=== PATIENT | male | born 1960 | race Two or more races ===

== ENCOUNTER 2019-10-02 07:58 | Inpatient (IN) | payer OTHER ==
[~2019-10-02] VITALS: Ht 172.7 cm; Wt 68.0 kg
--- NOTE | 2019-10-02 08:00 | NUR ---
Patient arrived to ED by ambulance from [facility]. Patient O2 sat dropped to 87% at [facility] this AM per EMS. Patient arrived on non-rebreather mask at 13 L, satting 95% per EMS. Currently on NC at 4 L with O2 sat of 98%. +3 pitting edema on BLE, non productive, wet cough. Patient AxO x 2. Pressure ulcer on sacrum noted. Patient on the playground monitor. Bed in lowest position. Addendum: 10/02/19 at 1048 by DIAZ ED Nurse Note: Per EMS, patient hypotensive at baseline. SBP runs in the 80's to 90's at baseline.
[2019-10-02] MEDS ORDERED: NS 250 ML IV ONE (08:08)
[2019-10-02 08:09] VITALS: BP 82/53
--- NOTE | 2019-10-02 08:11 | Emergency Room Report ---
History of Present Illness General Chief Complaint: Dyspnea/Respdistress Source: Patient, Medical Record, EMS Present Illness HPI 63-year-old male With medical history of B-cell lymphoma, mucosa-associated lymphoma, diabetes, depression, bipolar disorder, GERD, UTI currently on Cipro, sent for shortness of breath and low O2 sat of 85% on room air. Further history is difficult to ascertain due to patient's medical condition, Answering yes or no questions, nodding appropriately, but not able to speak much secondary to respiratory distress and generalized weakness. However, patient denied any pain complaints, and reports the increasing breathing difficulty just started very recently, unclear if yesterday or just today. Allergies: Coded Allergies: No Known Allergies (Unverified , 10/02/19) Patient History Limited by: medical condition Past Medical History: see triage record Reviewed Nursing Documentation: PMH: Agreed; PSxH: Agreed Nursing Documentation-PMH Past Medical History: No History, Except For Hx Diabetes: Yes - Type 2 Review of Systems All Other Systems: limited - 2/2 medical condition Physical Exam Vital Signs Date Time Temp Pulse Resp B/P (MAP) Pulse Ox O2 Delivery O2 Flow Rate FiO2 10/02/19 07:50 97.0 103 18 81/52 (62) 95 Non-Rebreather 15.0 Sp02 EP Interpretation: reviewed, abnormal General Appearance: alert, mild distress Head: normocephalic Eyes: bilateral eye normal inspection, bilateral eye PERRL, bilateral eye EOMI ENT: normal ENT inspection, normal pharynx, no angioedema, moist mucus membranes Neck: normal inspection, full range of motion, supple, supple/symm/no masses Respiratory: chest non-tender, decreased breath sounds - at R base, rhonchi, chest symmetrical, palpation of chest normal Cardiovascular #1: normal peripheral pulses, regular rate, rhythm, edema - 2+ B /L LE edema Cardiovascular #2: 1+ radial (R), 1+ radial (L) Gastrointestinal: normal inspection, non tender, soft, no mass, no guarding, no rebound Rectal: deferred Genitourinary: normal inspection, no CVA tenderness Musculoskeletal: back normal, normal range of motion, non-tender, no calf tenderness Neurologic: alert, responsive, electric serviceman III-XII nml as tested, motor strength/tone normal, sensory intact Psychiatric: mood/affect normal Skin: no rash Lymphatic: no adenopathy Procedures Critical Care Time Critical Care Time 40 mins of critical care time excluding all procedures due to severe respiratory distress, hypoxia Medical Decision Making Diagnostic Impression: Primary Impression: Respiratory distress Additional Impression: Hypoxia ER Course Patient has a documented POLST form that shows he is DNR. He is found to have a likely pneumonia, was given supplemental oxygen for his significant hypoxia, as well as nebulizer therapy, and patient reports some relief with this. Patient with POLST form requesting avoidance of aggressive care, therefore with hypotension and peripheral edema, will only give small aliquots of fluid and re- assess frequently. No shalini pulmonary edema on CXR, so will avoid lasix 2/2 low bp. Lactic acid 2.1, do not have high suspicion for sepsis.and admitted to telemetry suspected pneumonia, given antibiotics as well. Patient with POLST form requesting avoidance of aggressive care, therefore with hypotension and peripheral edema, will only give small aliquots of fluid and re-assess frequently. No shalini pulmonary edema on CXR, so will avoid lasix 2/2 low bp. Lactic acid 2.1, do not have high suspicion for sepsis. EKG Diagnostic Results EKG Time: 08:19 EP Interpretation: no stemi Rate: normal Rhythm: NSR ST Segments: no acute changes ASA given to the pt in ED: No Rhythm Strip Diag. Results Rhythm Strip Time: 08:50 EP Interpretation: yes Rate: 100 Rhythm: NSR, no PVC's, no ectopy Chest X-Ray Diagnostic Results Chest X-Ray Diagnostic Results : Chest X-Ray Ordered: Yes # of Views/Limited/Complete: 1 View Indication: Shortness of Breath EP Interpretation: Yes Interpretation: no consolidation - patchy R basilar opacity, no effusion, no pneumothorax, other - R mindy diaphragm elevation Impression: Other - patchy R basilar pna and R hemidiaphragm elevation Electronically Signed by: Rebeka Cristobal MD Last Vital Signs Date Time Temp Pulse Resp B/P (MAP) Pulse Ox O2 Delivery O2 Flow Rate FiO2 10/02/19 07:50 97.0 103 18 81/52 (62) 95 Non-Rebreather 15.0 REBEKA CRISTOBAL M.D Oct 02, 2019 08:11
[2019-10-02] MEDS ORDERED: ZOFRAN4 M3 ORAL (08:14)
[2019-10-02] MEDS ORDERED: ATIVAN1 MG ORAL (08:14)
[2019-10-02] MEDS ORDERED: FLOMAX0.4 MG ORAL (08:14)
[2019-10-02] MEDS ORDERED: CIPRO250 MG ORAL (08:14)
[2019-10-02] MEDS ORDERED: MELATONIN5 M2 SL (08:14)
[2019-10-02] MEDS ORDERED: NORCO 10-325 T1 EACH ORAL (08:14)
[2019-10-02] MEDS ORDERED: MIRALAX17 G2 ORAL (08:14)
[2019-10-02] MEDS ORDERED: MILK OF MA400 MG/51 ORAL (08:14)
[2019-10-02] MEDS ORDERED: TRAZODONE HCL50 MG ORAL (08:14)
[2019-10-02] MEDS ORDERED: BISACODYL5 MG ORAL (08:14)
[2019-10-02] MEDS ORDERED: DOCUSATE SODIU100 MG ORAL (08:14)
[2019-10-02] MEDS ORDERED: OMEPRAZOLE20 M2 ORAL (08:14)
[2019-10-02] MEDS ORDERED: LEVSIN-SL0.125 MG SL (08:14)
[2019-10-02] MEDS ORDERED: MORPHINE S20 MG/5 ML PO (08:14)
--- NOTE | 2019-10-02 08:15 | NUR ---
RT at bedside giving breathing treatment.
[2019-10-02] MEDS: Albuterol ud Inhalation HHN SCH ×2 (08:20→09:09)
[2019-10-02] MEDS: Ipratropium 0.02% Inh Soln 2.5ml UD HHN SCH ×2 (08:20→09:09)
--- NOTE | 2019-10-02 08:20 | NUR ---
ED Nurse Note: x-ray at bedside.
[2019-10-02 08:34] LABS: HEMATOCRIT 30.2 % (42.0-52.0); HEMOGLOBIN 8.9 G/DL (14.2-18.0); MEAN CORPUSCULAR VOLUME 94 FL (80-99); PLATELET COUNT 331 K/UL (150-450); RED BLOOD COUNT 3.21 M/UL (4.70-6.10); RED CELL DISTRIBUTION WIDTH 19.9 % (11.6-14.8); WHITE BLOOD COUNT 13.6 K/UL (4.8-10.8)
[2019-10-02 08:42] LABS: INR 1.2 (0.9-1.1)
--- NOTE | 2019-10-02 08:48 | NUR ---
ED Nurse Note: blood and urine sent to lab.
--- NOTE | 2019-10-02 08:50 | NUR ---
ED Nurse Note: ERMD at bedside.
--- NOTE | 2019-10-02 08:52 | NUR ---
ED Nurse Note: RT staying at bedside for breathing treatment and ABG
[2019-10-02 09:03] LABS: ALANINE AMINOTRANSFERASE 102 U/L (12-78); ALBUMIN 1.5 G/DL (3.4-5.0); ALBUMIN/GLOBULIN RATIO 0.3 (1.0-2.7); ALKALINE PHOSPHATASE 416 U/L (46-116); ANION GAP 15 mmol/L (5-15); ASPARTATE AMINO TRANSFERASE 370 U/L (15-37); BILIRUBIN,TOTAL 3.6 MG/DL (0.2-1.0); BLOOD UREA NITROGEN 85 mg/dL (7-18); CALCIUM 8.5 MG/DL (8.5-10.1); CARBON DIOXIDE 19 MMOL/L (21-32); CHLORIDE 104 MMOL/L (98-107); CREATININE 2.2 MG/DL (0.55-1.30); SODIUM 138 MMOL/L (136-145)
[2019-10-02 09:09] LABS: POTASSIUM 6.4 MMOL/L (3.5-5.1)
[2019-10-02 09:10] LABS: APPEARANCE,URINE SLIGHTLY CLOUDY; BILIRUBIN, URINE 1+ (NEGATIVE); COLOR,URINE BROWN; GLUCOSE, URINE (UA) NEGATIVE (NEGATIVE); KETONES,URINE 1+ (NEGATIVE); LEUKOCYTE ESTERASE ,URINE 1+ (NEGATIVE); NITRITE,URINE NEGATIVE (NEGATIVE); PH,URINE 5 (4.5-8.0); PROTEIN,URINE 2+ (NEGATIVE); UROBILINOGEN,URINE 8 MG/DL (0.0-1.0)
[2019-10-02 09:11] LABS: BILIRUBIN,DIRECT 3.1 MG/DL (0.0-0.3)
[2019-10-02] MEDS ORDERED: Aspirin Baby 81mg PO SCH (09:15)
[2019-10-02] MEDS ORDERED: Omnipaue 350mg/ml 100ml vial INJ PRN (09:15)
--- NOTE | 2019-10-02 09:18 | NUR ---
ED Nurse Note: pt having difficulty to clear the secretion. RT suctioning pt.
--- NOTE | 2019-10-02 09:27 | Diagnostic Imaging Report ---
Indication: Shortness of breath Technique: One view of the chest Comparison: none Findings: There is marked elevation the right hemidiaphragm. There is atelectasis at the right lung base. The heart size is normal. Impression: Elevated right hemidiaphragm with right basilar atelectasis No acute process otherwise
[2019-10-02] MEDS ORDERED: Calcium Gluconate 1gm/10ml vial IVP ONE (09:30)
[2019-10-02] MEDS ORDERED: Sodium Bicarbonate 50ml Carp IV ONE (09:30)
[2019-10-02] MEDS ORDERED: Sodium Polystyrene Sulfonate 15gm Powder ORAL ONE (09:30)
[2019-10-02] MEDS ORDERED: Insulin Human Regular 100units/ml 3ml IV ONE (09:30)
[2019-10-02 10:02] VITALS: BP 93/63
--- NOTE | 2019-10-02 10:12 | NUR ---
ED Nurse Note: pt more awake and talks more to make needs than arrival.
--- NOTE | 2019-10-02 10:20 | NUR ---
ED Nurse Note: US initiated at bedside.
--- NOTE | 2019-10-02 10:42 | NUR ---
ED Nurse Note: US done at bedside.
--- NOTE | 2019-10-02 11:40 | NUR ---
ED Nurse Note: Per ER MD, patient needs VQ scan prior to being transfered. Tie In Hand took patient to VQ scan in stable condition.
--- NOTE | 2019-10-02 11:54 | NUR ---
ED Nurse Note: Handoff report given to Josefa BIRMINGHAM. Patient currently in VQ scan, will be transfered to [facility] in approximately 1 hour. Josefa BIRMINGHAM aware.
--- NOTE | 2019-10-02 12:00 | NUR ---
NURSE NOTES: I received the patient from the ER. Patient alert and oriented x4. Patient on a NC at 5L. Patient oriented to the room and the use of the call light. Bed in the lowest position and call light within reach. I will continue to monitor the patient and contact admitting doctor.
--- NOTE | 2019-10-02 12:05 | NUR ---
ED Nurse Note: pt came back to unit without VQ scan due to being unable to lay flat during the scanning. pt will be transferred.
--- NOTE | 2019-10-02 12:08 | NUR ---
Attempted STAT VQ SCAN. Pt unable to tolerate laying flat. Unable to do scan
--- NOTE | 2019-10-02 12:10 | NUR ---
ED Nurse Note: Patient transfered to Telemetry unit in stable condition by 2 RN's. Josefa BIRMINGHAM took over patient care.
--- NOTE | 2019-10-02 13:29 | Diagnostic Imaging Report ---
Indication: Shortness of breath, bilateral lower extremity edema Technique: Grayscale and duplex images of the bilateral lower extremity veins Comparison: none Findings: Bilaterally, grayscale and duplex images demonstrate no evidence of intraluminal thrombus. Normal phasic Doppler waveforms demonstrating normal augmentation response. No evidence of valvular insufficiency. Normal compressibility. There is edema of the subcutaneous fat and deep soft tissues noted bilaterally Impression: Negative for evidence of lower extremity deep venous thrombosis bilaterally.
--- NOTE | 2019-10-02 13:42 | Infectious Diseases Prog Note ---
Assessment/Plan Problems: (1) RLL pneumonia Assessment & Plan: with productive cough, fever and infiltrates on CXR, start vancomycin and zosyn empirically, send sputum culture , aspiration precaution (2) Leukocytosis Assessment & Plan: rule out sepsis, start vancomycin and zosyn empirically pending blood culture , continue hydration for blood pressure support (3) Respiratory distress Assessment & Plan: rule out PE too , recommend CTA of the chest , or VQ scan, will order venous Doppler of the legs (4) Hypoxia Assessment & Plan: suspect due to the above, continue antibiotics, oxygen and nebulizers as needed (5) B-cell lymphoma Assessment & Plan: unclear whether he was treated , oncology is following (6) Diabetes mellitus Assessment & Plan: recommend tight glycemic control to keep blood glucose between 100-140 (7) UTI (urinary tract infection) Assessment & Plan: already on zosyn pending culture Subjective Allergies: Coded Allergies: No Known Allergies (Unverified , 10/02/19) Objective Vital Signs Last 24 Hour Vital Signs Date Time Temp Pulse Resp B/P (MAP) Pulse Ox O2 Delivery O2 Flow Rate FiO2 10/02/19 13:02 97.8 102 20 93/63 94 Nasal Cannula 4.0 120 120 10/02/19 10:02 97.8 120 20 93/63 94 Nasal Cannula 4.0 10/02/19 08:20 98 26 96 10/02/19 08:20 102 18 96 4.0 36 98 26 96 10/02/19 08:09 97.0 102 18 82/53 96 Nasal Cannula 4.0 10/02/19 08:09 103 18 Nasal Cannula 4.0 10/02/19 07:50 97.0 103 18 81/52 (62) 95 Non-Rebreather 15.0 Height (Feet): 5 Height (Inches): 8.00 Weight (Pounds): 150 Microbiology Date/Time Source Procedure Growth Status 10/02/19 08:10 Nasal Not Otherwise Specified - Final Complete 10/02/19 08:10 Nasal Not Otherwise Specified - Final Complete Laboratory Tests Test 10/02/19 08:02 10/02/19 08:10 10/02/19 10:04 Arterial Blood pH 7.311 (7.350-7.450) Arterial Blood Partial Pressure CO2 29.3 mmHg (35.0-45.0) L Arterial Blood Partial Pressure O2 83.1 mmHg (75.0-100.0) Arterial Blood HCO3 14.5 mmol/L (22.0-26.0) *L Arterial Blood Oxygen Saturation 94.3 % (95-100) L Arterial Blood Base Excess -10.7 (-2-2) *L Maynor Test Positive White Blood Count 13.6 K/UL (4.8-10.8) H Red Blood Count 3.21 M/UL (4.70-6.10) L Hemoglobin 8.9 G/DL (14.2-18.0) L Hematocrit 30.2 % (42.0-52.0) L Mean Corpuscular Volume 94 FL (80-99) Mean Corpuscular Hemoglobin 27.6 PG (27.0-31.0) Mean Corpuscular Hemoglobin Concent 29.4 G/DL (32.0-36.0) L Red Cell Distribution Width 19.9 % (11.6-14.8) H Platelet Count 331 K/UL (150-450) Mean Platelet Volume 6.4 FL (6.5-10.1) L Neutrophils (%) (Auto) % (45.0-75.0) Lymphocytes (%) (Auto) % (20.0-45.0) Monocytes (%) (Auto) % (1.0-10.0) Eosinophils (%) (Auto) % (0.0-3.0) Basophils (%) (Auto) % (0.0-2.0) Differential Total Cells Counted 100 Neutrophils % (Manual) 90 % (45-75) H Lymphocytes % (Manual) 5 % (20-45) L Monocytes % (Manual) 5 % (1-10) Eosinophils % (Manual) 0 % (0-3) Basophils % (Manual) 0 % (0-2) Band Neutrophils 0 % (0-8) Nucleated Red Blood Cells 1 /100 WBC Platelet Estimate Adequate Platelet Morphology Normal Prothrombin Time 12.7 SEC (9.30-11.50) H Prothromb Time International Ratio 1.2 (0.9-1.1) H Activated Partial Thromboplast Time 31 SEC (23-33) Urine Color Brown Urine Appearance Slightly cloudy Urine pH 5 (4.5-8.0) Urine Specific [place] 1.020 (1.005-1.035) Urine Protein 2+ (NEGATIVE) H Urine Glucose (UA) Negative (NEGATIVE) Urine Ketones 1+ (NEGATIVE) H Urine Blood 1+ (NEGATIVE) H Urine Nitrite Negative (NEGATIVE) Urine Bilirubin 1+ (NEGATIVE) H Urine Ictotest Negative (NEGATIVE) Urine Urobilinogen 8 MG/DL (0.0-1.0) H Urine Leukocyte Esterase 1+ (NEGATIVE) H Urine RBC 2-4 /HPF (0 - 0) H Urine WBC 2-4 /HPF (0 - 0) Urine Squamous Epithelial Cells Occasional /LPF Urine Amorphous Sediment Moderate /LPF (NONE) H Urine Bacteria Few /HPF (NONE) Sodium Level 138 MMOL/L (136-145) Potassium Level 6.4 MMOL/L (3.5-5.1) *H Chloride Level 104 MMOL/L (98-107) Carbon Dioxide Level 19 MMOL/L (21-32) L Anion Gap 15 mmol/L (5-15) Blood Urea Nitrogen 85 mg/dL (7-18) H Creatinine 2.2 MG/DL (0.55-1.30) H Estimat Glomerular Filtration Rate 30.3 mL/min (>60) Glucose Level 139 MG/DL (74-106) H Lactic Acid Level 2.10 mmol/L (0.4-2.0) H 3.10 mmol/L (0.66-2.22) H Calcium Level 8.5 MG/DL (8.5-10.1) Iron Level Pending Unsaturated Iron Binding Pending Ferritin Pending Total Bilirubin 3.6 MG/DL (0.2-1.0) H Direct Bilirubin 3.1 MG/DL (0.0-0.3) H Aspartate Amino Transf (AST/SGOT) 370 U/L (15-37) H Alanine Aminotransferase (ALT/SGPT) 102 U/L (12-78) H Alkaline Phosphatase 416 U/L (46-116) H Troponin I 0.041 ng/mL (0.000-0.056) Pro-B-Type Natriuretic Peptide 1778 pg/mL (0-125) H Total Protein 6.4 G/DL (6.4-8.2) Albumin 1.5 G/DL (3.4-5.0) L Globulin 4.9 g/dL Albumin/Globulin Ratio 0.3 (1.0-2.7) L Vitamin B12 Level Pending Folate Pending Current Medications Medications (Trade) Dose Ordered Sig/Melisa Route PRN Reason Start Time Stop Time Status Last Admin Dose Admin Iohexol (Omnipaque) 100 mg NOW PRN INJ Radiology Procedure 10/02/19 09:15 10/04/19 09:06 Levofloxacin 150 ml @ 150 mls/hr Q24H IV 10/02/19 08:15 10/03/19 08:14 10/02/19 08:55 Mario Yates M.D. Oct 02, 2019 13:42
[2019-10-02] MEDS ORDERED: HYDROcodone/Acetamin 5/325 tab ORAL PRN (13:45)
[2019-10-02] MEDS ORDERED: Tylenol #3 tab (300mg/30mg) ORAL PRN (13:45)
[2019-10-02] MEDS: Albuterol/Ipratropium 3ml neb HHN SCH ×3 (14:37→23:26)
[2019-10-02] MEDS: D5NS 1,000 ML IV SCH (15:40)
[2019-10-02] MEDS: Piperacillin/Tazobactam 3.375 GM in NS 110 ML IVPB SCH ×2 (15:41→21:54)
--- NOTE | 2019-10-02 16:15 | NUR ---
NURSE NOTES: Patient blood pressure was decreased, 69/48 and his oxygen saturation was at 70% on 5L of NC. A 250 ml of NS bolus and albumin order was obtained from Dr. Haji and VINNIE Woods assisted in entering orders and administering medications. A rapid response was called. Patient was put on a venturi mask and saturation increased to 100%. NS bolus and albumin was started. Patient resting in bed. Patient responds to name.
--- NOTE | 2019-10-02 16:30 | NUR ---
HAND-OFF: Report given to VINNIE Wagner.
--- NOTE | 2019-10-02 16:53 | Cardiac Electrophysiology PN ---
Subjective Subjective [id number] Objective Last 24 Hour Vital Signs Date Time Temp Pulse Resp B/P (MAP) Pulse Ox O2 Delivery O2 Flow Rate FiO2 10/02/19 13:02 97.8 102 20 93/63 94 Nasal Cannula 4.0 120 120 10/02/19 12:54 Non-Rebreather 10/02/19 10:02 97.8 120 20 93/63 94 Nasal Cannula 4.0 10/02/19 08:20 98 26 96 10/02/19 08:20 102 18 96 4.0 36 98 26 96 10/02/19 08:09 97.0 102 18 82/53 96 Nasal Cannula 4.0 10/02/19 08:09 103 18 Nasal Cannula 4.0 10/02/19 07:50 97.0 103 18 81/52 (62) 95 Non-Rebreather 15.0 Laboratory Tests Test 10/02/19 08:02 10/02/19 08:10 10/02/19 10:04 Arterial Blood pH 7.311 (7.350-7.450) Arterial Blood Partial Pressure CO2 29.3 mmHg (35.0-45.0) L Arterial Blood Partial Pressure O2 83.1 mmHg (75.0-100.0) Arterial Blood HCO3 14.5 mmol/L (22.0-26.0) *L Arterial Blood Oxygen Saturation 94.3 % (95-100) L Arterial Blood Base Excess -10.7 (-2-2) *L Maynor Test Positive White Blood Count 13.6 K/UL (4.8-10.8) H Red Blood Count 3.21 M/UL (4.70-6.10) L Hemoglobin 8.9 G/DL (14.2-18.0) L Hematocrit 30.2 % (42.0-52.0) L Mean Corpuscular Volume 94 FL (80-99) Mean Corpuscular Hemoglobin 27.6 PG (27.0-31.0) Mean Corpuscular Hemoglobin Concent 29.4 G/DL (32.0-36.0) L Red Cell Distribution Width 19.9 % (11.6-14.8) H Platelet Count 331 K/UL (150-450) Mean Platelet Volume 6.4 FL (6.5-10.1) L Neutrophils (%) (Auto) % (45.0-75.0) Lymphocytes (%) (Auto) % (20.0-45.0) Monocytes (%) (Auto) % (1.0-10.0) Eosinophils (%) (Auto) % (0.0-3.0) Basophils (%) (Auto) % (0.0-2.0) Differential Total Cells Counted 100 Neutrophils % (Manual) 90 % (45-75) H Lymphocytes % (Manual) 5 % (20-45) L Monocytes % (Manual) 5 % (1-10) Eosinophils % (Manual) 0 % (0-3) Basophils % (Manual) 0 % (0-2) Band Neutrophils 0 % (0-8) Nucleated Red Blood Cells 1 /100 WBC Platelet Estimate Adequate Platelet Morphology Normal Prothrombin Time 12.7 SEC (9.30-11.50) H Prothromb Time International Ratio 1.2 (0.9-1.1) H Activated Partial Thromboplast Time 31 SEC (23-33) Urine Color Brown Urine Appearance Slightly cloudy Urine pH 5 (4.5-8.0) Urine Specific [place] 1.020 (1.005-1.035) Urine Protein 2+ (NEGATIVE) H Urine Glucose (UA) Negative (NEGATIVE) Urine Ketones 1+ (NEGATIVE) H Urine Blood 1+ (NEGATIVE) H Urine Nitrite Negative (NEGATIVE) Urine Bilirubin 1+ (NEGATIVE) H Urine Ictotest Negative (NEGATIVE) Urine Urobilinogen 8 MG/DL (0.0-1.0) H Urine Leukocyte Esterase 1+ (NEGATIVE) H Urine RBC 2-4 /HPF (0 - 0) H Urine WBC 2-4 /HPF (0 - 0) Urine Squamous Epithelial Cells Occasional /LPF Urine Amorphous Sediment Moderate /LPF (NONE) H Urine Bacteria Few /HPF (NONE) Sodium Level 138 MMOL/L (136-145) Potassium Level 6.4 MMOL/L (3.5-5.1) *H Chloride Level 104 MMOL/L (98-107) Carbon Dioxide Level 19 MMOL/L (21-32) L Anion Gap 15 mmol/L (5-15) Blood Urea Nitrogen 85 mg/dL (7-18) H Creatinine 2.2 MG/DL (0.55-1.30) H Estimat Glomerular Filtration Rate 30.3 mL/min (>60) Glucose Level 139 MG/DL (74-106) H Lactic Acid Level 2.10 mmol/L (0.4-2.0) H 3.10 mmol/L (0.66-2.22) H Calcium Level 8.5 MG/DL (8.5-10.1) Iron Level Pending Unsaturated Iron Binding Pending Ferritin > 2000 NG/ML (8-388) H Total Bilirubin 3.6 MG/DL (0.2-1.0) H Direct Bilirubin 3.1 MG/DL (0.0-0.3) H Aspartate Amino Transf (AST/SGOT) 370 U/L (15-37) H Alanine Aminotransferase (ALT/SGPT) 102 U/L (12-78) H Alkaline Phosphatase 416 U/L (46-116) H Troponin I 0.041 ng/mL (0.000-0.056) Pro-B-Type Natriuretic Peptide 1778 pg/mL (0-125) H Total Protein 6.4 G/DL (6.4-8.2) Albumin 1.5 G/DL (3.4-5.0) L Globulin 4.9 g/dL Albumin/Globulin Ratio 0.3 (1.0-2.7) L Microbiology Date/Time Source Procedure Growth Status 10/02/19 08:10 Nasal Not Otherwise Specified - Final Complete 10/02/19 08:10 Nasal Not Otherwise Specified - Final Complete Tom Holliday MD Oct 02, 2019 16:53
[2019-10-02] MEDS ORDERED: Vancomycin 1gm in D5W 275ml IVPB ONE (18:00)
--- NOTE | 2019-10-02 18:05 | NUR ---
NURSE NOTES: pt refused esquivel and labs. Insisted a few time but pt still refused was present at beside
--- NOTE | 2019-10-02 19:05 | NUR ---
NURSE NOTES: Dr Peters is aware of pt refusing labs and esquivel.
--- NOTE | 2019-10-02 19:30 | NUR ---
HAND-OFF: Report given to Laci. Addendum: 10/02/19 at 2012 by Kristy Finley RN HAND OFF : Due to unforeseen situation, pt report was given to Kathy, she will be taking care of pt.
[2019-10-02 20:00] VITALS: BP 90/55
--- NOTE | 2019-10-02 20:17 | NUR ---
NURSE NOTES: RECEIVED PATIENT AWAKE, RESTING IN BED. AT BEDSIDE. FALL AND ASPIRATION PRECAUTIONS IN PLACE: CALL LIGHT AND BEDSIDE TABLE WITHIN REACH, BED IN LOW POSITION AND BED ALARM ON. PLAN OF CARE REVIEWED.
--- NOTE | 2019-10-02 20:25 | Pulmonology Progress Note ---
Assessment/Plan Assessment/Plan Pulmonary Consulttaion HPI Patient is a 63 year old man with previous medical history of B-cell lymphoma, Mucosa-associated lymphoma, Diabetes, Depression, Bipolar disorder, GERD, UTI, admitted with worsening shortness of breath and low O2 sat of 85% on room air, hypotension, generalized weakness. Patient denied any pain. Patient DNAR per POLST Allergies: No Known Allergies Past Medical History: B-cell lymphoma, Mucosa-associated lymphoma, Diabetes, Depression, Bipolar disorder, GERD, UTI All Other Systems: limited due to medical condition Physical Exam Vital Signs Noted Date Time Temp Pulse Resp B/P (MAP) Pulse Ox O2 Delivery O2 Flow Rate FiO2 10/02/19 07:50 97.0 103 18 81/52 (62) 95 Non-Rebreather 15.0 General Appearance: Chroncially ill appearing, mild distress, cachectic Head: normocephalic Eyes: bilateral eye normal inspection, bilateral eye PERRL, bilateral eye EOMI ENT: normal ENT inspection, normal pharynx, no angioedema, moist mucus membranes Neck: normal inspection, full range of motion, supple, supple/symm/no masses Respiratory: chest non-tender, decreased breath sounds - at R base, occasional rhonchi Cardiovascular: normal peripheral pulses, regular rate, rhythm, normal HS1 and HS2, edema - mild edema Gastrointestinal: normal inspection, non tender, soft, no mass, no guarding, no rebound Musculoskeletal: Generally wasted, weak Neurologic: alert, responsive, community engagement specialist III-XII nml as tested, weak, moves all limbs Psychiatric: mood/affect normal Impression: Respiratory distress, hypoxia Pneumonia Possible Sepsis Hypotension Hyperkalemia B-cell lymphoma Mucosa-associated lymphoma Diabetes Depression Bipolar disorder GERD UTI DNAR Plan O2 PRN HHN BiPAP PRN DNAR status Continue current antibiotics Cautious IV fluids Cortisol level Stress Dose steroids Monitor labs PPX EKG: NSR ST Segments: no acute changes Chest X-Ray: Patchy R basilar opacity, no effusion, no pneumothorax, right mindy diaphragm elevation Subjective ROS Limited/Unobtainable: No Allergies: Coded Allergies: No Known Allergies (Unverified , 10/02/19) Objective Last 24 Hour Vital Signs Date Time Temp Pulse Resp B/P (MAP) Pulse Ox O2 Delivery O2 Flow Rate FiO2 10/02/19 19:51 102 18 94 Non-Rebreather 15.0 100 108 28 100 10/02/19 16:00 109 10/02/19 16:00 15.0 10/02/19 13:02 97.8 102 20 93/63 94 Nasal Cannula 4.0 120 120 10/02/19 12:54 Non-Rebreather 10/02/19 10:02 97.8 120 20 93/63 94 Nasal Cannula 4.0 10/02/19 08:20 98 26 96 10/02/19 08:20 102 18 96 4.0 36 98 26 96 10/02/19 08:09 97.0 102 18 82/53 96 Nasal Cannula 4.0 10/02/19 08:09 103 18 Nasal Cannula 4.0 10/02/19 07:50 97.0 103 18 81/52 (62) 95 Non-Rebreather 15.0 Microbiology Date/Time Source Procedure Growth Status 10/02/19 08:10 Nasal Not Otherwise Specified - Final Complete 10/02/19 08:10 Nasal Not Otherwise Specified - Final Complete Laboratory Tests 10/02/19 08:02: Arterial Blood pH 7.311L, Arterial Blood Partial Pressure CO2 29.3L, Arterial Blood Partial Pressure O2 83.1, Arterial Blood HCO3 14.5*L, Arterial Blood Oxygen Saturation 94.3L, Arterial Blood Base Excess -10.7*L, Maynor Test Positive 10/02/19 08:10: White Blood Count 13.6H, Red Blood Count 3.21L, Hemoglobin 8.9L, Hematocrit 30.2L, Mean Corpuscular Volume 94, Mean Corpuscular Hemoglobin 27.6, Mean Corpuscular Hemoglobin Concent 29.4L, Red Cell Distribution Width 19.9H, Platelet Count 331, Mean Platelet Volume 6.4L, Neutrophils (%) (Auto) , Lymphocytes (%) (Auto) , Monocytes (%) (Auto) , Eosinophils (%) (Auto) , Basophils (%) (Auto) , Differential Total Cells Counted 100, Neutrophils % ( Manual) 90H, Lymphocytes % (Manual) 5L, Monocytes % (Manual) 5, Eosinophils % ( Manual) 0, Basophils % (Manual) 0, Band Neutrophils 0, Nucleated Red Blood Cells 1, Platelet Estimate Adequate, Platelet Morphology Normal, Prothrombin Time 12.7H, Prothromb Time International Ratio 1.2H, Activated Partial Thromboplast Time 31, Urine Color Brown, Urine Appearance Slightly cloudy, Urine pH 5, Urine Specific [place] 1.020, Urine Protein 2+H, Urine Glucose (UA) Negative, Urine Ketones 1+H, Urine Blood 1+H, Urine Nitrite Negative, Urine Bilirubin 1+H, Urine Ictotest Negative, Urine Urobilinogen 8H, Urine Leukocyte Esterase 1+H, Urine RBC 2-4H, Urine WBC 2-4, Urine Squamous Epithelial Cells Occasional, Urine Amorphous Sediment ModerateH, Urine Bacteria Few, Sodium Level 138, Potassium Level 6.4*H, Chloride Level 104, Carbon Dioxide Level 19L, Anion Gap 15, Blood Urea Nitrogen 85H, Creatinine 2.2H, Estimat Glomerular Filtration Rate 30.3, Glucose Level 139H, Lactic Acid Level 2.10H, Calcium Level 8.5, Iron Level [Pending], Unsaturated Iron Binding [Pending], Ferritin > 2000H, Total Bilirubin 3.6H, Direct Bilirubin 3.1H, Aspartate Amino Transf (AST/ SGOT) 370H, Alanine Aminotransferase (ALT/SGPT) 102H, Alkaline Phosphatase 416H , Troponin I 0.041, Pro-B-Type Natriuretic Peptide 1778H, Total Protein 6.4, Albumin 1.5L, Globulin 4.9, Albumin/Globulin Ratio 0.3L 10/02/19 10:04: Lactic Acid Level 3.10H Current Medications Medications (Trade) Dose Ordered Sig/Melisa Route PRN Reason Start Time Stop Time Status Last Admin Dose Admin Acetaminophen/ Codeine Phosphate (Tylenol #3) 1 tab Q6H PRN ORAL For Pain 10/02/19 13:45 10/09/19 13:44 Acetaminophen/ Hydrocodone Bitart ([place] 5/325) 1 tab Q6H PRN ORAL For Pain 10/02/19 13:45 10/09/19 13:44 Albuterol/ Ipratropium (Albuterol/ Ipratropium) 3 ml Q4HRT HHN 10/02/19 15:00 10/07/19 14:59 10/02/19 19:51 Dextrose/Sodium Chloride 1,000 ml @ 100 mls/hr Q10H IV 10/02/19 13:45 11/01/19 13:44 10/02/19 15:40 Hydrocortisone (Solu-CORTEF) 50 mg EVERY 8 HOURS IV 10/02/19 22:00 11/01/19 21:59 Iohexol (Omnipaque) 100 mg NOW PRN INJ Radiology Procedure 10/02/19 09:15 10/04/19 09:06 Lansoprazole (Prevacid) 15 mg DAILY ORAL 10/03/19 09:00 11/02/19 08:59 Morphine Sulfate (Morphine Sulfate) 2 mg Q6H PRN IVP Severe Pain (Pain Scale 7-10) 10/02/19 13:45 10/09/19 13:44 Ondansetron HCl (Zofran) 4 mg Q6H PRN IVP Nausea & Vomiting 10/02/19 13:45 11/01/19 13:44 Ondansetron HCl (Zofran) 4 mg Q6H PRN ORAL Nausea & Vomiting 10/02/19 13:45 11/01/19 13:44 Piperacillin Sod/ Tazobactam Sod 3.375 gm/Sodium Chloride 110 ml @ 27.5 mls/hr EVERY 8 HOURS IVPB 10/02/19 14:00 10/07/19 13:59 10/02/19 15:41 Tamsulosin HCl (Flomax) 0.4 mg DAILY ORAL 10/03/19 09:00 11/02/19 08:59 Vancomycin HCl (Vanco rx to dose) 1 ea DAILY PRN MISC Per rx protocol 10/02/19 13:45 11/01/19 13:44 David Haji MD Oct 02, 2019 20:25
[2019-10-02] MEDS: Hydrocortisone 100mg Inj IV SCH (21:53)
--- NOTE | 2019-10-02 22:02 | Consultation ---
DATE OF CONSULTATION: 10/02/2019 INFECTIOUS DISEASE CONSULTATION CONSULTING PHYSICIAN: Mario Yates M.D. REQUESTING PHYSICIAN: Lorraine Canchola M.D. REASON FOR CONSULTATION: Pneumonia, sepsis, and leukocytosis in an immunocompromised patient. Recommendation for antibiotics treatment. HISTORY OF PRESENT ILLNESS: The patient is a 63-year-old male with past medical history of B-cell lymphoma, diabetes, depression, bipolar disorder, gastroesophageal reflux disease, and urinary tract infection, who has been on ciprofloxacin recently, was sent to [facility] emergency room for cough, productive, shortness of breath, and hypoxemia. The patient was found to be saturating 85% on room air. The patient has been feeling weak and tired over the last couple of days and unable to speak in full sentences. In the emergency room, his temperature was 97 with blood pressure of 81/52, which was concerning for sepsis. His white count also was found to be elevated. Chest x-ray showed right lower lobe infiltration concerning for pneumonia, so the patient was given Levaquin, antibiotics treatment, and admitted to the tele monitor unit for further evaluation and management. Infectious Disease consultation was requested for antibiotic guidance and further care. As of note, the patient is a poor historian and could not provide good history. History was mainly obtained from the medical record, nursing staff, and partially from the patient. REVIEW OF SYSTEMS: A 14-point of system reviewed were all negative apart from the one I mentioned above in my History and Physical. PAST MEDICAL HISTORY: Significant for B-cell lymphoma, diabetes, depression, bipolar disorder, gastroesophageal reflux disease, and urinary tract infection. PAST SURGICAL HISTORY: Not on record. MEDICATIONS: The patient received Levaquin in the emergency room and he was started on vancomycin and Zosyn by the admitting physician. For the rest of his medications, please refer to MAR. ALLERGIES: No known drug allergies. FAMILY HISTORY: Not contributory. SOCIAL HISTORY: The patient denies using any drugs, tobacco, or alcohol. He is retired. Unemployed at this point. PHYSICAL EXAMINATION: VITAL SIGNS: Temperature 97.8, pulse 102, respirations 20, blood pressure 93/63, and O2 saturation 94% on 4 L nasal cannula. GENERAL: A middle-aged male, cachectic, lying in bed, lethargic, ill-looking, able to answer question, not in acute distress. HEENT: Normocephalic and atraumatic. Pupils are reactive to light. Equal pale sclerae. Dry oral mucosa with brownish exudate on his tongue. No thrush or ulceration. NECK: Supple. No lymphadenopathy. CARDIOVASCULAR: He is tachycardic. S1, S2 normal. No gallop. No murmur. LUNGS: He had diminished breathing sound in the right lower lobe with crackles. No wheezing or rhonchi. ABDOMEN: Tender in the right upper quadrant with mild ascites. No rebound. EXTREMITY: A +3 edema in both lower extremity. No cyanosis. Unable to palpate distal pulse. SKIN: No rash. No hives. GENITOURINARY: Normal genitalia. LABORATORY AND DIAGNOSTIC DATA: Labs showed white count of 13.6, hemoglobin of 8.9, and platelet count of 331,000. BUN of 85, creatinine of 2.2, and potassium of 6.4. AST of 370, ALT of 102, and alkaline phosphatase of 416. Urinalysis showed +1 leukocyte esterase, wbc 2 to 4, and few amount of bacteria. MICROBIOLOGY: Influenza screening A and B both negative. IMAGING: Chest x-ray showed elevated right hemidiaphragm with right basilar atelectases, no acute process otherwise. Venous Doppler of the legs was negative for DVT. ASSESSMENT AND RECOMMENDATION: 1. Right lower lobe pneumonia with productive cough, fever, and infiltrate on chest x-ray. We will start vancomycin and Zosyn empiric coverage for now. Send sputum culture. Aspiration precaution. Monitor chest x-ray. 2. Leukocytosis, rule out sepsis. We will start vancomycin and Zosyn empiric coverage for now pending blood culture. Continue hydration and blood pressure support as needed. Monitor laboratory. 3. Urinary tract infection. The patient will be already on Zosyn pending urine culture. 4. Respiratory distress. Rule out pulmonary embolism. To recommend CT angio of the chest or ventilation/perfusion scan to rule out pulmonary embolism. Already had venous Doppler of the legs, which was negative for DVT. 5. Hypoxemia. Suspect due to the above. Continue antibiotics. Oxygen and nebulizer as needed. 6. B-cell lymphoma, unclear whether he was treated. Oncology team is following the patient. 7. Diabetes mellitus. Recommend tight glycemic control to keep blood glucose between 100 to 140. Thank you for the consult. ID will continue to follow. Please feel free to call with any question. Mario Yates M.D. DR: CARLTON JOB#: [id number] CC:
--- NOTE | 2019-10-02 22:15 | Consultation ---
DATE OF CONSULTATION: 10/02/2019 CARDIOLOGY CONSULTATION CONSULTING PHYSICIAN: Tom Holliday M.D. REFERRING PHYSICIAN: Sushant Peters M.D. REASON FOR CONSULTATION: Lower extremity edema, shortness of breath, and tachycardia. 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 While the patient was on telemetry, the patient had a rapid response for low blood pressure and low saturation. The patient only is able to nod to questions, but not able to speak sentences. Cardiology consultation was obtained for further evaluation and management. It is of note, the patient is also DNR. REVIEW OF SYSTEMS: Cannot be obtained in view of the patient's clinical status. PAST MEDICAL HISTORY: As mentioned above. FAMILY HISTORY: Noncontributory. SOCIAL HISTORY: Does not smoke or drink alcohol. PHYSICAL EXAMINATION: VITAL SIGNS: Show blood pressure of 92/63, pulse 120, respirations 18, and temperature 97.8. HEAD AND NECK: Shows positive JVD. LUNGS: Decreased breath sounds. CARDIOVASCULAR: Shows tachycardic S1 and S2 with no gallop. ABDOMEN: Distended. EXTREMITIES: Has 4+ pitting edema. LABORATORY AND DIAGNOSTIC DATA: His labs show white count 13, hematocrit of 8.9, hematocrit 30, and platelet count 331,000. Sodium 138, potassium 6.4, BUN of 85, hematocrit of 2.2, and glucose of 139. His is more than 2000. Total bilirubin is 3.6. Troponin 0.04 and BNP is 1778. ASSESSMENT/PLAN: 1. Tachycardia due to sinus tachycardia. EKG showed no acute ST-T wave abnormalities. We will get an echocardiogram to rule out for an ejection fraction and wall motion abnormality especially with BNP of 1800. 2. Hypotension. Already, the patient is intravenous fluid. If needed, start the patient on Levophed. The patient is also on broad-spectrum IV antibiotic with vancomycin and Zosyn per Dr. Yates. 3. Right lower lobe pneumonia and leukocytosis. 4. Hypoxemia. 5. B-cell lymphoma. Oncology evaluation is pending. 6. Diabetes. 7. Urinary tract infection. 8. Severe bilateral lower extremity edema. Venous duplex is pending. 9. Renal failure, azotemia. 10. Hyperbilirubinemia. Thank you very much for allowing me to participate in the care of this patient. Please do not hesitate to contact me for any questions regarding my evaluation. Tom Holliday M.D. DR: JHON JOB#: [id number] CC:
[2019-10-03] MEDS: Albuterol/Ipratropium 3ml neb HHN SCH ×6 (03:10→23:00)
[2019-10-03 04:00] VITALS: BP 84/49
[2019-10-03] MEDS: D5NS 1,000 ML IV SCH ×3 (04:15→20:25)
[2019-10-03] MEDS: Hydrocortisone 100mg Inj IV SCH ×3 (05:28→21:23)
[2019-10-03] MEDS: Piperacillin/Tazobactam 3.375 GM in NS 110 ML IVPB SCH ×3 (05:28→21:24)
--- NOTE | 2019-10-03 06:45 | CDS Physician Query ---
Clarification is required for compliance, coding accuracy, and to reflect severity of illness for this patient Dear Mario Trivedi M.D. Date: 10/03/2019 CDS: Gonzales Carpio Patient is a 63 year old man with previous medical history of B-cell lymphoma, Mucosa-associated lymphoma, Diabetes, Depression, Bipolar disorder, GERD, UTI, admitted with worsening shortness of breath and low O2 sat of 85% on room air, hypotension, generalized weakness. Patient denied any pain. Assessment/Plan Problems: RLL pneumonia UTI WBC: 13.6 Tx: IV VANCOMYCIN, IV PIPERACILLIN/TAZOBACTAM According to the clinical indications above, please indicate below the condition PHYSICIAN RESPONSE: Sepsis SIRS xxx SIRS with organ dysfunction Septic Shock Not applicable Other: Present on Admission: Yes xxx No Clinically Undetermined Physician signature Date Please also document in your Progress Notes and/or Discharge Summary and indicate if the condition was present on admission. CARLOTA
--- NOTE | 2019-10-03 07:26 | NUR ---
HAND-OFF: Report given to Verona STOKES RN. PATIENT AWAKE, RESTING IN BED.
--- NOTE | 2019-10-03 07:35 | NUR ---
NURSE NOTES: Received report from Karon/RN, Patient is awake, Lying semi-prather's, resting comfortably. On non-rebreather mask, no acute distress/SOB noted. IV site patent, no bleeding or infiltration noted. D5 NS running @ 100cc/hr. Encouraged to use call light when needed. Bed in lowest position and locked, Bed alarm engaged, Side-rails up x3. Call light within reach. Will continue plan of care.
[2019-10-03 08:00] VITALS: BP 100/62
[2019-10-03] MEDS: Lansoprazole 15mg cap ORAL SCH (08:50)
[2019-10-03] MEDS: Tamsulosin 0.4mg cap ORAL SCH (08:50)
[2019-10-03] MEDS: Morphine Sulfate 2mg/ml Inj(IV/IM USE ONLY) IVP PRN ×2 (08:51→20:35)
--- NOTE | 2019-10-03 09:33 | History & Physical ---
History and Physical History & Physicial seen and examined. Full dictation completed. on 933 Am Sushant Peters MD Oct 03, 2019 09:33
--- NOTE | 2019-10-03 09:50 | Consultation ---
History of Present Illness General Chief Complaint: Dyspnea/Respdistress Present Illness Allergies: Coded Allergies: No Known Allergies (Unverified , 10/02/19) Medication History Scheduled Bisacodyl* (Dulcolax*), 5 MG ORAL DAILY, (Reported) Ciprofloxacin HCl (Cipro), 250 MG ORAL EVERY 12 HOURS, (Reported) Docusate Sodium* (Docusate Sodium*), 100 MG ORAL TWICE A DAY, (Reported) Hyoscyamine Sulfate* (Levsin-Sl*), 0.125 MG SL FOUR TIMES A DAY, (Reported) Lorazepam* (Ativan*), 1 MG ORAL BEDTIME, (Reported) Magnesium Hydroxide* (Milk Of Magnesia*), 30 ML ORAL DAILY, (Reported) Omeprazole (Omeprazole), 20 MG ORAL DAILY, (Reported) Polyethylene Glycol 3350* (Miralax*), 17 GM ORAL DAILY, (Reported) Tamsulosin HCl (Flomax), 0.4 MG ORAL DAILY, (Reported) Trazodone Hcl* (Desyrel*), 50 MG ORAL BEDTIME, (Reported) Scheduled PRN Hydrocodone Bit/Acetaminophen 10-325* ([place] 10-325*), 1 TAB ORAL Q4H PRN for For Pain, (Reported) Melatonin (Melatonin), 5 MG SL BEDTIME PRN for Insomnia, (Reported) Ondansetron* (Zofran*), 4 MG ORAL Q6H PRN for Nausea & Vomiting, (Reported) Miscellaneous Medications Morphine Sulfate (Morphine Sulfate), 20 MG PO, (Reported) Patient History Healthcare decision maker Resuscitation status Do Not Resuscitate Advanced Directive on File No Physical Exam Last 24 Hour Vital Signs Date Time Temp Pulse Resp B/P (MAP) Pulse Ox O2 Delivery O2 Flow Rate FiO2 10/03/19 08:00 96.6 113 20 100/62 (75) 98 10/03/19 07:27 113 20 100 Non-Rebreather 15.0 100 112 20 100 10/03/19 04:00 15.0 10/03/19 04:00 113 10/03/19 04:00 97.2 112 24 84/49 (61) 99 10/03/19 03:11 107 24 100 Non-Rebreather 15.0 100 10/03/19 00:00 111 10/02/19 23:27 116 26 94 Non-Rebreather 15.0 100 107 24 100 10/02/19 21:00 15.0 10/02/19 21:00 Non-Rebreather 15.0 10/02/19 20:00 97.3 107 22 90/55 (67) 100 10/02/19 20:00 106 10/02/19 19:51 102 18 94 Non-Rebreather 15.0 100 108 28 100 10/02/19 16:00 109 10/02/19 16:00 15.0 10/02/19 13:02 97.8 102 20 93/63 94 Nasal Cannula 4.0 120 120 10/02/19 12:54 Non-Rebreather 10/02/19 10:02 97.8 120 20 93/63 94 Nasal Cannula 4.0 Intake and Output 10/02/19 10/03/19 18:59 06:59 Intake Total 650 ml 1312.5 ml Balance 650 ml 1312.5 ml Intake Oral 0 ml IV Total 650 ml 1312.5 ml # Voids 1 3 Laboratory Tests Test 10/02/19 10:04 Lactic Acid Level 3.10 mmol/L (0.66-2.22) H Height (Feet): 5 Height (Inches): 8.00 Weight (Pounds): 150 Medications Current Medications Medications (Trade) Dose Ordered Sig/Melisa Route PRN Reason Start Time Stop Time Status Last Admin Dose Admin Acetaminophen/ Codeine Phosphate (Tylenol #3) 1 tab Q6H PRN ORAL For Pain 10/02/19 13:45 10/09/19 13:44 Acetaminophen/ Hydrocodone Bitart ([place] 5/325) 1 tab Q6H PRN ORAL For Pain 10/02/19 13:45 10/09/19 13:44 Albuterol/ Ipratropium (Albuterol/ Ipratropium) 3 ml Q4HRT HHN 10/02/19 15:00 10/07/19 14:59 10/03/19 07:27 Dextrose/Sodium Chloride 1,000 ml @ 100 mls/hr Q10H IV 10/02/19 13:45 11/01/19 13:44 10/03/19 09:00 Hydrocortisone (Solu-CORTEF) 50 mg EVERY 8 HOURS IV 10/02/19 22:00 11/01/19 21:59 10/03/19 05:28 Iohexol (Omnipaque) 100 mg NOW PRN INJ Radiology Procedure 10/02/19 09:15 10/04/19 09:06 Lansoprazole (Prevacid) 15 mg DAILY ORAL 10/03/19 09:00 11/02/19 08:59 10/03/19 08:50 Morphine Sulfate (Morphine Sulfate) 2 mg Q6H PRN IVP Severe Pain (Pain Scale 7-10) 10/02/19 13:45 10/09/19 13:44 10/03/19 08:51 Ondansetron HCl (Zofran) 4 mg Q6H PRN IVP Nausea & Vomiting 10/02/19 13:45 11/01/19 13:44 Ondansetron HCl (Zofran) 4 mg Q6H PRN ORAL Nausea & Vomiting 10/02/19 13:45 11/01/19 13:44 Piperacillin Sod/ Tazobactam Sod 3.375 gm/Sodium Chloride 110 ml @ 27.5 mls/hr EVERY 8 HOURS IVPB 10/02/19 14:00 10/07/19 13:59 10/03/19 05:28 Sodium Polystyrene Sulfonate (Kayexalate) 30 gm ONCE ORAL 10/03/19 09:30 10/03/19 11:00 Tamsulosin HCl (Flomax) 0.4 mg DAILY ORAL 10/03/19 09:00 11/02/19 08:59 10/03/19 08:50 Vancomycin HCl (Vanco rx to dose) 1 ea DAILY PRN MISC Per rx protocol 10/02/19 13:45 11/01/19 13:44 Assessment/Plan Assessment/Plan: Hem Oncology Consultation' RFA: Dyspnea/Respdistress RFC: B cell lymphoma eval DOS: 10/03/19 ERNESTO VALERA: Ada Peters HPI 59-year-old male With medical history of B-cell lymphoma, mucosa-associated lymphoma, diabetes, depression, bipolar disorder, GERD, UTI currently on Cipro, sent for shortness of breath and low O2 sat of 85% on room air. Further history is difficult to ascertain due to patient's medical condition, Answering yes or no questions, nodding appropriately, but not able to speak much secondary to respiratory distress and generalized weakness. However, patient denied any pain complaints, and reports the increasing breathing difficulty just started very recently, unclear if yesterday or just today. Was diagnosed with pna and heme/onc consulted, currently is on abx. He is minimally responsive, very difficult to obtain further hx from him at this time, mouths words slowly. Allergies: No Known Allergies (Unverified , 10/02/19) Patient History Limited by: medical condition Past Medical History: see triage record Reviewed Nursing Documentation: PMH: Agreed; PSxH: Agreed Past Medical History: No History, Except For Hx Diabetes: Yes - Type 2 Review of Systems All Other Systems: limited - 2/2 medical condition Physical Exam Vital Signs Date Time Temp Pulse Resp B/P (MAP) Pulse Ox O2 Delivery O2 Flow Rate FiO2 10/02/19 07:50 97.0 103 18 81/52 (62) 95 Non-Rebreather 15.0 General: alert, mild distress Neck: normal inspection, full range of motion, supple, supple/symm/no masses Rest": ++ R base, rhonchi, chest symmetrical, palpation of chest normal CV: rrr, no mgr Gastrointestinal: normal inspection, non tender, soft, no mass, no guarding, no rebound Rectal: deferred : normal inspection, no CVA tenderness Neurologic: alert, responsive, community marketing coordinator III-XII nml as tested Labs: noted Imaging: reviewed Assessment and Recs # 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 Oncology evaluation is pending. --> 2008 diagnosis of MALT --> currently is not an issue # Anemia of chronic disease --> obtain anemia panel as needed --> hgb goal >7 --> monitor for hemolysis --> no bleeding noted # Sepsis likely due to pna --> on abx as per id # Hyperbilirubinemia is likely due to liver mets --> gi eval # Diabetes M II --> accuchecks qac and qhs --> iss accuchecks qac and qhs # Urinary tract infection. --> is on abx # Severe bilateral lower extr --> r/o dvt duplex # DNR status DW RN and appreciate consultation. Edu Bobo MD Oct 03, 2019 09:50
[2019-10-03] MEDS: Sodium Polystyrene Sulfonate 15gm Powder ORAL SCH ×2 (09:52→10:00)
--- NOTE | 2019-10-03 10:13 | Cardiac Electrophysiology PN ---
Assessment/Plan Assessment/Plan 1. Tachycardia due to sinus tachycardia. EKG showed no acute ST-T wave abnormalities. Echocardiogram pending 2. Hypotension. Resolved with intravenous fluid. The patient is also on broad- spectrum IV antibiotic with vancomycin and Zosyn per Dr. Yates. 3. Right lower lobe pneumonia and leukocytosis. 4. Hypoxemia. 5. B-cell lymphoma. Oncology evaluation per Dr Hale 6. Diabetes. 7. Urinary tract infection. 8. Severe bilateral lower extremity edema. Venous duplex No DVT 9. Renal failure, azotemia. 10. Hyperbilirubinemia. DW RN Subjective Subjective Very weak and depressed. Says he wants to and is refusing some meds. Echo being done. Objective Last 24 Hour Vital Signs Date Time Temp Pulse Resp B/P (MAP) Pulse Ox O2 Delivery O2 Flow Rate FiO2 10/03/19 08:00 96.6 113 20 100/62 (75) 98 10/03/19 07:27 113 20 100 Non-Rebreather 15.0 100 112 20 100 10/03/19 04:00 15.0 10/03/19 04:00 113 10/03/19 04:00 97.2 112 24 84/49 (61) 99 10/03/19 03:11 107 24 100 Non-Rebreather 15.0 100 10/03/19 00:00 111 10/02/19 23:27 116 26 94 Non-Rebreather 15.0 100 107 24 100 10/02/19 21:00 15.0 10/02/19 21:00 Non-Rebreather 15.0 10/02/19 20:00 97.3 107 22 90/55 (67) 100 10/02/19 20:00 106 10/02/19 19:51 102 18 94 Non-Rebreather 15.0 100 108 28 100 10/02/19 16:00 109 10/02/19 16:00 15.0 10/02/19 13:02 97.8 102 20 93/63 94 Nasal Cannula 4.0 120 120 10/02/19 12:54 Non-Rebreather Intake and Output 10/02/19 10/03/19 18:59 06:59 Intake Total 650 ml 1312.5 ml Balance 650 ml 1312.5 ml Intake Oral 0 ml IV Total 650 ml 1312.5 ml # Voids 1 3 Microbiology Date/Time Source Procedure Growth Status 10/02/19 08:10 Nasal Not Otherwise Specified - Final Complete 10/02/19 08:10 Nasal Not Otherwise Specified - Final Complete Objective HEAD AND NECK: Mild JVD. LUNGS: Decreased breath sounds. CARDIOVASCULAR: Shows tachycardic S1 and S2 with no gallop. ABDOMEN: Distended. EXTREMITIES: Has 4+ pitting edema. Tom Holliday MD Oct 03, 2019 10:13
--- NOTE | 2019-10-03 11:29 | NUR ---
*-* NO INSURANCE INFORMATION IN THE BAR UNABLE TO SEND CLINICALS OR REVIEWS *-*
--- NOTE | 2019-10-03 11:37 | NUR ---
Regarding V/Q Scan: Pt is still unable to tolerate laying flat for V/Q scan. Unable to do scan. Informed RN Sheryl.
[2019-10-03 12:00] VITALS: BP 102/56
[2019-10-03] MEDS ORDERED: NS 275ml ONE (15:17)
--- NOTE | 2019-10-03 15:47 | Infectious Diseases Prog Note ---
Assessment/Plan Problems: (1) RLL pneumonia Assessment & Plan: with productive cough, fever and infiltrates on CXR, continue vancomycin and zosyn empirically, send sputum culture , aspiration precaution (2) Leukocytosis Assessment & Plan: rule out sepsis, continue vancomycin and zosyn empirically pending blood culture , continue hydration for blood pressure support (3) Respiratory distress Assessment & Plan: rule out PE too , recommend CTA of the chest , or VQ scan, venous Doppler of the legs is negative (4) Hypoxia Assessment & Plan: suspect due to the above, continue antibiotics, oxygen and nebulizers as needed (5) B-cell lymphoma Assessment & Plan: unclear whether he was treated , oncology is following (6) Diabetes mellitus Assessment & Plan: recommend tight glycemic control to keep blood glucose between 100-140 (7) UTI (urinary tract infection) Assessment & Plan: already on zosyn pending culture Subjective Constitutional: Reports: fatigue, anorexia HEENT: Reports: no symptoms Respiratory: Reports: dry cough Breasts: Reports: no symptoms Cardiovascular: Reports: no symptoms Gastrointestinal/Abdominal: Reports: bloating Genitourinary: Reports: no symptoms Neurologic: Reports: weakness, confusion Psychiatric: Reports: depression Skin: Reports: no symptoms Endocrine: Reports: no symptoms Hematologic: Reports: swollen lymph nodes Musculoskeletal: Reports: no symptoms Allergies: Coded Allergies: No Known Allergies (Unverified , 10/02/19) Objective Vital Signs Last 24 Hour Vital Signs Date Time Temp Pulse Resp B/P (MAP) Pulse Ox O2 Delivery O2 Flow Rate FiO2 10/03/19 12:00 15.0 10/03/19 12:00 114 10/03/19 12:00 97.0 113 18 102/56 (71) 100 10/03/19 09:00 Non-Rebreather 15.0 10/03/19 08:00 113 10/03/19 08:00 96.6 113 20 100/62 (75) 98 10/03/19 08:00 15.0 10/03/19 07:27 113 20 100 Non-Rebreather 15.0 100 112 20 100 10/03/19 04:00 15.0 10/03/19 04:00 113 10/03/19 04:00 97.2 112 24 84/49 (61) 99 10/03/19 03:11 107 24 100 Non-Rebreather 15.0 100 10/03/19 00:00 111 10/02/19 23:27 116 26 94 Non-Rebreather 15.0 100 107 24 100 10/02/19 21:00 15.0 10/02/19 21:00 Non-Rebreather 15.0 10/02/19 20:00 97.3 107 22 90/55 (67) 100 10/02/19 20:00 106 10/02/19 19:51 102 18 94 Non-Rebreather 15.0 100 108 28 100 10/02/19 16:00 109 10/02/19 16:00 15.0 Height (Feet): 5 Height (Inches): 8.00 Weight (Pounds): 150 General Appearance: no acute distress, cachetic HEENT: normocephalic, atraumatic, anicteric, mucous membranes moist, PERRL, supple, no JVD Respiratory/Chest: chest wall non-tender, lungs clear, normal breath sounds, no respiratory distress, no accessory muscle use Cardiovascular: normal peripheral pulses, normal rate, regular rhythm, no gallop/murmur, no JVD Abdomen: normal bowel sounds, soft, non tender, no organomegaly, non distended , no mass, no scars Genitourinary: normal external genitalia Extremities: no cyanosis, no clubbing Skin: no rash, no lesions, no ulcers Neurologic/Psychiatric: alert, responsive Lymphatic: no neck adenopathy, no groin adenopathy Musculoskeletal: normal muscle bulk, no effusion Microbiology Date/Time Source Procedure Growth Status 10/02/19 08:10 Nasal Not Otherwise Specified - Final Complete 10/02/19 08:10 Nasal Not Otherwise Specified - Final Complete Current Medications Medications (Trade) Dose Ordered Sig/Melisa Route PRN Reason Start Time Stop Time Status Last Admin Dose Admin Acetaminophen/ Codeine Phosphate (Tylenol #3) 1 tab Q6H PRN ORAL For Pain 10/02/19 13:45 10/09/19 13:44 Acetaminophen/ Hydrocodone Bitart ([place] 5/325) 1 tab Q6H PRN ORAL For Pain 10/02/19 13:45 10/09/19 13:44 Albuterol/ Ipratropium (Albuterol/ Ipratropium) 3 ml Q4HRT HHN 10/02/19 15:00 10/07/19 14:59 10/03/19 07:27 Dextrose/Sodium Chloride 1,000 ml @ 100 mls/hr Q10H IV 10/02/19 13:45 11/01/19 13:44 10/03/19 09:00 Hydrocortisone (Solu-CORTEF) 50 mg EVERY 8 HOURS IV 10/02/19 22:00 11/01/19 21:59 10/03/19 13:47 Iohexol (Omnipaque) 100 mg NOW PRN INJ Radiology Procedure 10/02/19 09:15 10/04/19 09:06 Lansoprazole (Prevacid) 15 mg DAILY ORAL 10/03/19 09:00 11/02/19 08:59 10/03/19 08:50 Morphine Sulfate (Morphine Sulfate) 2 mg Q6H PRN IVP Severe Pain (Pain Scale 7-10) 10/02/19 13:45 10/09/19 13:44 10/03/19 08:51 Ondansetron HCl (Zofran) 4 mg Q6H PRN IVP Nausea & Vomiting 10/02/19 13:45 11/01/19 13:44 Ondansetron HCl (Zofran) 4 mg Q6H PRN ORAL Nausea & Vomiting 10/02/19 13:45 11/01/19 13:44 Piperacillin Sod/ Tazobactam Sod 3.375 gm/Sodium Chloride 110 ml @ 27.5 mls/hr EVERY 8 HOURS IVPB 10/02/19 14:00 10/07/19 13:59 10/03/19 13:47 Tamsulosin HCl (Flomax) 0.4 mg DAILY ORAL 10/03/19 09:00 11/02/19 08:59 10/03/19 08:50 Vancomycin HCl (Vanco rx to dose) 1 ea DAILY PRN MISC Per rx protocol 10/02/19 13:45 11/01/19 13:44 Mario Yates M.D. Oct 03, 2019 15:47
[2019-10-03 16:00] VITALS: BP 103/61
--- NOTE | 2019-10-03 16:00 | History and Physical Report ---
DATE OF ADMISSION: 10/02/2019 SOURCE OF INFORMATION: Patient and EMR. HISTORY OF PRESENT ILLNESS: The patient is a 59-year-old male, misfortunate male, with a history of end-stage cancer, most likely colorectal cancer. The patient had been under the care of the hospice care in the half-way, had been transferred secondary to respiratory distress. At the time of evaluation, the patient is cachectic. Denies any pain. Positive for mild shortness of breath. Current hospital medications including Zosyn, vancomycin. PAST MEDICAL HISTORY: Colorectal cancer, diabetes, lymphoma. PAST SURGICAL HISTORY: Including abdominal surgery secondary to colorectal cancer. SOCIAL HISTORY: The patient is currently residing in a prison facility. The patient gives prior history of tobacco use and illicit drug abuse. However, he denies any active usage. PHYSICAL EXAMINATION: VITAL SIGNS: Blood pressure of , pulse rate 100, respiratory rate of 18, temperature 97. GENERAL: Cachectic appearance. HEAD AND NECK: Atraumatic and normocephalic. CHEST: Diffuse bronchial breathing sounds. HEART: S1, S2. Tachycardic. ABDOMEN: Protuberant, soft. NEUROLOGY: The patient is awake, alert, oriented x3. The patient is very weak and tired, but he is coherent. LABORATORY DATA: Labs dated 10/02/2019, WBC 13.6, hemoglobin of 8.9, platelet counts of 331,000. Creatinine of 2.2. Potassium 6.4. AST of 370. Chest x-ray dated 10/02/2019 shows right basilar atelectasis. ASSESSMENT: 1. Metastatic cancer, primary source unknown. 2. Cachexia. 3. Hyperkalemia. 4. Abnormal LFT. PLAN OF CARE: The patient is DNR. The patient would like to remain comfortable. We would continue with the comfort measures. Initial antibiotic and empiric antibiotic has been initiated. Cardiology, Infectious Disease have been consulted. Sushant Peters M.D. DR: GABRIELA JOB#: [id number] CC:
--- NOTE | 2019-10-03 16:00 | NUR ---
CASE MANAGEMENT: INITIAL REVIEW 59 YR OLD MALE BIBA FROM [facility] CC: DYSPNEA/ RESP DISTRESS SI: RESP DISTRESS; PNA; SEPSIS; UTI; HYPOXIA 97.0 103 18 81/52 95% NR MASK 15L K+ 6.4; BUN 85; CREAT 2.2; WBC 13.6; H/H 8.9/30.2; TBIL 3.6; DBIL 3.1; AST/ALT 370/416; FERR >2000; BNP 1778; LACTIC ACID 3.10 ABG HCO3 14.5; PCO2 29.3; PT/INR 12.7/1.2 IS: IVF NS X1 PROVENTIL HHN X1 ATROVENT HHN X1 IV LEVAQUIN X1 ASA PO X1 IV SODIUM BICARBONATE X1 IV NOVOLOG X1 IV CALCIUM GLUCONATE X1 KAYEXALATE PO X1 : 2E TELE UNIT DCP: RETURN TO [facility] PLAN: CT ANGIO CHEST R/O PULMONARY EMBOLISM VENOUS DUPLEX PENDING 2D ECHO NOTE: NEW DX HEPATIC METS TO LIVER/ABD
--- NOTE | 2019-10-03 17:15 | Pulmonology Progress Note ---
Assessment/Plan Assessment/Plan Impression: Respiratory distress, hypoxia improved Elevated hemidiaphragm Possible Sepsis Hypotension Hyperkalemia B-cell lymphoma Mucosa-associated lymphoma Diabetes Depression Bipolar disorder GERD UTI DNAR Plan O2 taper VQ ABG follow up heparin SQ HHN BiPAP PRN DNAR status antibiotics noted Cautious IV fluids Stress Dose steroids Monitor labs impression, plan, and exam edited and reviewed in detail care discussed with RN Subjective Allergies: Coded Allergies: No Known Allergies (Unverified , 10/02/19) Subjective care noted and all reviewed Objective Last 24 Hour Vital Signs Date Time Temp Pulse Resp B/P (MAP) Pulse Ox O2 Delivery O2 Flow Rate FiO2 10/03/19 16:00 107 10/03/19 16:00 98.5 105 20 103/61 (75) 97 10/03/19 16:00 15.0 10/03/19 12:00 15.0 10/03/19 12:00 114 10/03/19 12:00 97.0 113 18 102/56 (71) 100 10/03/19 09:00 Non-Rebreather 15.0 10/03/19 08:00 113 10/03/19 08:00 96.6 113 20 100/62 (75) 98 10/03/19 08:00 15.0 10/03/19 07:27 113 20 100 Non-Rebreather 15.0 100 112 20 100 10/03/19 04:00 15.0 10/03/19 04:00 113 10/03/19 04:00 97.2 112 24 84/49 (61) 99 10/03/19 03:11 107 24 100 Non-Rebreather 15.0 100 10/03/19 00:00 111 10/02/19 23:27 116 26 94 Non-Rebreather 15.0 100 107 24 100 10/02/19 21:00 15.0 10/02/19 21:00 Non-Rebreather 15.0 10/02/19 20:00 97.3 107 22 90/55 (67) 100 10/02/19 20:00 106 10/02/19 19:51 102 18 94 Non-Rebreather 15.0 100 108 28 100 Intake and Output 10/02/19 10/03/19 19:00 07:00 Intake Total 750 ml 1312.5 ml Balance 750 ml 1312.5 ml Intake Oral 0 ml IV Total 750 ml 1312.5 ml # Voids 1 3 Objective WDWN NAD clear breath sounds bilaterally without rhonchi or wheeze [id number] without MRG NABS nontender no HSM no CCE nonfocal Microbiology Date/Time Source Procedure Growth Status 10/02/19 08:10 Nasal Not Otherwise Specified - Final Complete 10/02/19 08:10 Nasal Not Otherwise Specified - Final Complete Current Medications Medications (Trade) Dose Ordered Sig/Melisa Route PRN Reason Start Time Stop Time Status Last Admin Dose Admin Acetaminophen/ Codeine Phosphate (Tylenol #3) 1 tab Q6H PRN ORAL For Pain 10/02/19 13:45 10/09/19 13:44 Acetaminophen/ Hydrocodone Bitart ([place] 5/325) 1 tab Q6H PRN ORAL For Pain 10/02/19 13:45 10/09/19 13:44 Albuterol/ Ipratropium (Albuterol/ Ipratropium) 3 ml Q4HRT HHN 10/02/19 15:00 10/07/19 14:59 10/03/19 07:27 Dextrose/Sodium Chloride 1,000 ml @ 100 mls/hr Q10H IV 10/02/19 13:45 11/01/19 13:44 10/03/19 09:00 Hydrocortisone (Solu-CORTEF) 50 mg EVERY 8 HOURS IV 10/02/19 22:00 11/01/19 21:59 10/03/19 13:47 Iohexol (Omnipaque) 100 mg NOW PRN INJ Radiology Procedure 10/02/19 09:15 10/04/19 09:06 Lansoprazole (Prevacid) 15 mg DAILY ORAL 10/03/19 09:00 11/02/19 08:59 10/03/19 08:50 Morphine Sulfate (Morphine Sulfate) 2 mg Q6H PRN IVP Severe Pain (Pain Scale 7-10) 10/02/19 13:45 10/09/19 13:44 10/03/19 08:51 Ondansetron HCl (Zofran) 4 mg Q6H PRN IVP Nausea & Vomiting 10/02/19 13:45 11/01/19 13:44 Ondansetron HCl (Zofran) 4 mg Q6H PRN ORAL Nausea & Vomiting 10/02/19 13:45 11/01/19 13:44 Piperacillin Sod/ Tazobactam Sod 3.375 gm/Sodium Chloride 110 ml @ 27.5 mls/hr EVERY 8 HOURS IVPB 10/02/19 14:00 10/07/19 13:59 10/03/19 13:47 Tamsulosin HCl (Flomax) 0.4 mg DAILY ORAL 10/03/19 09:00 11/02/19 08:59 10/03/19 08:50 Vancomycin HCl (Vanco rx to dose) 1 ea DAILY PRN MISC Per rx protocol 10/02/19 13:45 11/01/19 13:44 Jp Bain MD Oct 03, 2019 17:15
--- NOTE | 2019-10-03 19:15 | NUR ---
HAND-OFF: Report given to Huma/RN, Patient is awake, lying semi-prather's, in stable condition. Family at bedside. Endorsed plan of care.
--- NOTE | 2019-10-03 19:15 | NUR ---
OBTAINED REPORT FROM JOLLY RN, PT RESTING IN BED. PER REPORT AND PT EX- (CHANDA CARDOSO) PT IS DNR STATUS. SPOKE WITH PT EX CHANDA CARDOSO WHO STATES SHE IS POA AND CAN BE CONTACTED AT [phone]. PER CHANDA, PT HAS CREMATION ARRANGEMENTS WITH [facility]. THEY CAN CONTACTED AT [phone].
--- NOTE | 2019-10-03 19:30 | NUR ---
PER CHANDA (PT EX-) SHE WILL PROVIDE COPY OF FORM THAT STATES SHE IS POWER OF CARDIOPULMONARY TECHNICIAN AND EEG TECH AND SHE REPORTS SHE HAS UPDATED ALL [facility] THAT SHE HAS MADE CREMATION ARRANGEMENTS. FOR ANY CHANGES, [facility] CAN BE CONTACTED AT [phone].
[2019-10-03 20:12] VITALS: BP 95/62
[2019-10-03 20:35] VITALS: BP 115/64
[2019-10-03] MEDS ORDERED: Heparin 5000 units/ml inj SUBQ SCH (21:00)
[2019-10-04] MEDS: Albuterol/Ipratropium 3ml neb HHN SCH ×2 (03:00→06:56)
[2019-10-04 04:00] VITALS: BP 74/60
[2019-10-04] MEDS: Hydrocortisone 100mg Inj IV SCH (05:21)
[2019-10-04] MEDS: Piperacillin/Tazobactam 3.375 GM in NS 110 ML IVPB SCH (05:21)
[2019-10-04] MEDS: D5NS 1,000 ML IV SCH (05:21)
--- NOTE | 2019-10-04 06:57 | NUR ---
RESPIRATORY NOTE: Went to give breathing Tx Duoneb to pt at 0656, noted pt saturates at 91% on non rebreather, HR 52bpm, bradypnea RR<4bpm, then no breathing, absent breath sounds throughout the lobe, desaturated to 81% on breathing TX. pt is not respond to sternum rub, but still have pulses. Stopped breathing Tx, placed pt back on non rebreather, saturation is still decreasing. Called RT Nickie to confirm if pt really stop breathing and the absent breath sounds. RT Nickie confirmed. VINNIE Moore made aware. Pt is DNR, so we just observe the pt.
[2019-10-04 07:00] VITALS: BP 41/25
--- NOTE | 2019-10-04 07:00 | NUR ---
NURSE NOTES: Received report from VINNIE Moore. Per VINNIE Moore, comfort care has been provided to the patient throughout the power and recovery shift engineer. When two primary nurses are doing bedside report, the patient's breathing got shallow with decreased blood pressure and desaturation even with 15L of non-rebreather mask. Notified to charge nurse. The patient's bed in the lowest position, call light in reach, and fall and aspiration precaution reinforced. IV site intact and patent. Will closely monitor the patient and will provide comfort care to the patient.
--- NOTE | 2019-10-04 07:05 | NUR ---
NURSE NOTES: POLST and Advanced directive reviewed again. Will continue plan of care accordingly.
--- NOTE | 2019-10-04 07:15 | NUR ---
GAVE FULL REPORT TO GEOFFREY BIRMINGHAM, PT RESTING IN BED (KEPT COMFORTABLE AT ALL TIMES). MADE AWARE PRIMARY CONTACT IS EX- CHANDA AND PROVIDED CONTACT INFO FOR PT EX-, [facility]ATION [facility].
[2019-10-04] MEDS ORDERED: D5 1/2NS 1000ml IV ONE (07:54)
--- NOTE | 2019-10-04 07:55 | NUR ---
NURSE NOTES: No code called based on POLST, Advanced directive, and hospital code status. The primary nurse, charge nurse, and nursing malted milk supervisor at the bedside assessed the patient. Absence of spontaneous respiration, no carotid and apical pulse, and no breath sound upon auscultation. No pupil reflex noted. pronounced at 0755. Immediately called next of doc, Ms. Leatha Salazar and daughter. Called [facility] and spoke with Anamaria with . Called [facility] in [place] for the patient's condition and spoke with Renu. Called [facility] and spoke with Giuliana regarding the patient's condition. The family member came. Emotional support provided to the patient's family member. Proper post-mortem care provided with the charge nurse. Addendum: 10/04/19 at 1740 by Kristopher Ervin RN Notified Dr. Peters about the patient's condition.
--- NOTE | 2019-10-04 08:48 | Pulmonology Progress Note ---
Assessment/Plan Assessment/Plan Impression: Respiratory distress, hypoxia improved Elevated hemidiaphragm Possible Sepsis Hypotension Hyperkalemia B-cell lymphoma Mucosa-associated lymphoma Diabetes Depression Bipolar disorder GERD UTI DNAR metabolic acidosis Plan O2 taper as able still on nonrebreather VQ pending ABG follow up still pending heparin SQ and change to lovenox full dose for now HHN BiPAP PRN DNAR status antibiotics noted Cautious IV fluids Stress Dose steroids Monitor labs for change impression, plan, and exam edited and reviewed in detail care discussed with RN Subjective Allergies: Coded Allergies: No Known Allergies (Unverified , 10/02/19) Subjective care noted and all reviewed comfortable overnight Objective Last 24 Hour Vital Signs Date Time Temp Pulse Resp B/P (MAP) Pulse Ox O2 Delivery O2 Flow Rate FiO2 10/04/19 06:57 Non-Rebreather 15.0 100 10/04/19 04:30 15.0 10/04/19 04:30 72 10/04/19 04:00 84 20 74/60 (65) 95 10/04/19 03:22 115 24 90 Non-Rebreather 15.0 100 10/04/19 00:00 107 10/03/19 23:16 107 24 98 Non-Rebreather 15.0 100 10/03/19 20:35 110 115/64 (81) 10/03/19 20:14 15.0 10/03/19 20:12 100 20 95/62 (73) 95 10/03/19 20:00 115 10/03/19 20:00 Non-Rebreather 15.0 10/03/19 19:11 111 24 99 Non-Rebreather 15.0 100 10/03/19 16:00 107 10/03/19 16:00 98.5 105 20 103/61 (75) 97 10/03/19 16:00 15.0 10/03/19 12:00 15.0 10/03/19 12:00 114 10/03/19 12:00 97.0 113 18 102/56 (71) 100 10/03/19 09:00 Non-Rebreather 15.0 Intake and Output 10/03/19 10/04/19 18:59 06:59 Intake Total 240 ml Balance 240 ml Intake Oral 140 ml IV Total 100 ml Objective WDWN NAD clear breath sounds bilaterally without rhonchi or wheeze [id number] without MRG NABS nontender no HSM no CCE nonfocal Microbiology Date/Time Source Procedure Growth Status 10/02/19 08:20 Blood Blood Culture - Preliminary NO GROWTH AFTER 24 HOURS Resulted 10/02/19 08:10 Blood Blood Culture - Preliminary NO GROWTH AFTER 24 HOURS Resulted 10/02/19 08:10 Nasal Not Otherwise Specified - Final Complete 10/02/19 08:10 Nasal Not Otherwise Specified - Final Complete 10/02/19 11:40 Rectum VRE Culture - Final NO VANCOMYCIN RESISTANT ENTEROCOCCUS ... Complete Current Medications Medications (Trade) Dose Ordered Sig/Melisa Route PRN Reason Start Time Stop Time Status Last Admin Dose Admin Acetaminophen/ Codeine Phosphate (Tylenol #3) 1 tab Q6H PRN ORAL For Pain 10/02/19 13:45 10/09/19 13:44 Acetaminophen/ Hydrocodone Bitart ([place] 5/325) 1 tab Q6H PRN ORAL For Pain 10/02/19 13:45 10/09/19 13:44 Albuterol/ Ipratropium (Albuterol/ Ipratropium) 3 ml Q4HRT HHN 10/02/19 15:00 10/07/19 14:59 10/04/19 06:56 Dextrose/Sodium Chloride 1,000 ml @ 100 mls/hr Q10H IV 10/02/19 13:45 11/01/19 13:44 10/04/19 05:21 Heparin Sodium (Porcine) (Heparin 5000 units/ml) 5,000 units EVERY 12 HOURS SUBQ 10/03/19 21:00 11/02/19 20:59 Hydrocortisone (Solu-CORTEF) 50 mg EVERY 8 HOURS IV 10/02/19 22:00 11/01/19 21:59 10/04/19 05:21 Iohexol (Omnipaque) 100 mg NOW PRN INJ Radiology Procedure 10/02/19 09:15 10/04/19 09:06 Lansoprazole (Prevacid) 15 mg DAILY ORAL 10/03/19 09:00 11/02/19 08:59 10/03/19 08:50 Morphine Sulfate (Morphine Sulfate) 2 mg Q6H PRN IVP Severe Pain (Pain Scale 7-10) 10/02/19 13:45 10/09/19 13:44 10/03/19 20:35 Ondansetron HCl (Zofran) 4 mg Q6H PRN IVP Nausea & Vomiting 10/02/19 13:45 11/01/19 13:44 Ondansetron HCl (Zofran) 4 mg Q6H PRN ORAL Nausea & Vomiting 10/02/19 13:45 11/01/19 13:44 Piperacillin Sod/ Tazobactam Sod 3.375 gm/Sodium Chloride 110 ml @ 27.5 mls/hr EVERY 8 HOURS IVPB 10/02/19 14:00 10/07/19 13:59 10/04/19 05:21 Tamsulosin HCl (Flomax) 0.4 mg DAILY ORAL 10/03/19 09:00 11/02/19 08:59 10/03/19 08:50 Vancomycin HCl (Vanco rx to dose) 1 ea DAILY PRN MISC Per rx protocol 10/02/19 13:45 11/01/19 13:44 Jp Bain MD Oct 04, 2019 08:48
[2019-10-04] MEDS ORDERED: Enoxaparin 80mg Inj SUBQ SCH (09:00)
[2019-10-04] MEDS: Tamsulosin 0.4mg cap ORAL SCH (09:00)
[2019-10-04] MEDS: Lansoprazole 15mg cap ORAL SCH (09:00)
--- NOTE | 2019-10-04 09:32 | NUR ---
PRONOUNCEMENT: No Code. Called to pronounce patient. Absence of spontaneous respirations, no cardiac or breath sounds on auscultation. Pupils fixed and dilated. No carotid pulse or chest movement. Patient at 0755. DR Peters notified PER primary RN, Myranda. Family was notified at 0820.
--- NOTE | 2019-10-05 15:38 | Cardiology Report ---
APPROVED REPORT EKG Measurement Heart [id number] Sinus rhythm with short RI with fusion complexes Cannot rule out Anterior infarct, age undetermined Abnormal ECG
--- NOTE | 2019-10-06 15:20 | Discharge Summary ---
Discharge Summary Discharge Summary _ DATE OF ADMISSION: 10/02/2019 DATE OF DISCHARGE: 10/04/2019 BRIEF SUMMARY: Patient is an 59-year-old male, with history of end-stage cancer, who had been under the care of hospice in the long-term, was transferred to the hospital secondary to respiratory distress. Patient had O2 saturation of 85% on room air. He has medical history of B-cell lymphoma, mucosa associated lymphoma, diabetes, depression, bipolar disorder, GERD and UTI on ciprofloxacin. Upon evaluation at the ED, patient was hypotensive and tachycardic. He was on nonrebreather mask. Patient is DNR. He was given supplemental O2. He was started on nebulizer therapy. Chest x-ray showed shalini pulmonary edema. Blood work showed WBC elevated to 13.6. Hemoglobin 8.9, hematocrit 30. Potassium was elevated to 6.4. BUN 85 and creatinine 2.2. Lactic acid 3.1. LFTs and bilirubin were elevated. ABG showed mild metabolic acidosis with partial respiratory compensation. Chest x-ray showed patchy right basilar opacity, right hemidiaphragm elevation. Venous duplex did not show any acute DVT. He was then admitted for evaluation of respiratory distress. He was started empirically on vancomycin and Zosyn. Cultures were sent. He was continued on gentle IV hydration for blood pressure support. He was given stress dose steroids. He was placed on strict aspiration precautions. He was unable to do a VQ scan. Rapid response was called due to low blood pressure and low O2. EKG did not show any acute ST to T wave abnormality. BNP was elevated to 1800. Troponin was negative. He was placed on nonrebreather mask. CODE STATUS confirmed with DPOA. Blood culture did not isolate any growth. Patient eventually . FINAL DIAGNOSES: Possible sepsis Acute respiratory distress due to right lower lobe pneumonia and was pneumonia 2010 This is a poor midportion speaking There was no Metastatic CAD, primary source unknown Hypotension Hyperkalemia B cell lymphoma Mucosa-associated lymphoma Diabetes Depression Bipolar disorder GERD UTI DNR status DISPOSITION: Patient . I have been assigned to complete a discharge summary on this account, I was not involved with the patient's management.--KEYON Rosas Jacqueline Robles NP Oct 06, 2019 15:20
--- NOTE | 2019-10-07 10:42 | Cardiology Report ---
APPROVED REPORT EXAM: Two-dimensional and M-mode echocardiogram with Doppler and color Doppler. INDICATION Congestive Heart Failure M-Mode DIMENSIONS IVSd1.0 (0.7-1.1cm)Left Atrium (MM)4.0 (1.6-4.0cm) LVDd4.4 (3.5-5.6cm)Aortic Root3.8 (2.0-3.7cm) PWd1.1 (0.7-1.1cm)Aortic Cusp Exc.1.8 (1.5-2.0cm) LVDs3.0 (2.5-4.0cm) PWs1.5 cm Normal left ventricular chamber size, systolic function and wall motion. Left ventricular ejection fraction estimated to be 60 %. Anterior Echo-free space, may be due to pericardial fat or effusion. All other cardiac chamber sizes are within normal limits. Focal aortic valve sclerosis with adequate cusp excursion. Thickened mitral valve leaflets with normal excursion. Mitral annulus and aortic root calcification. Normal pulmonic valve structure. Normal tricuspid valve structure. IVC dilated at 2.3 cm without physiologic collapse suggestive of increased RA pressure. A color flow and spectral Doppler study was performed and revealed: Mild aortic regurgitation. Mild mitral regurgitation. left ventricular relaxation c/w mild LV diastolic dysfunction (Grade I ). Trace tricuspid regurgitation. Tricuspid systolic velocities suggests peak right ventricular systolic pressure of 21 mmHg. No pulmonic regurgitation present.
== END 2019-10-04 07:55 | disposition expired | DRG 720 ==
LOC: EDBD 07:58 → EMR 08:42 → 2E 10:34 → EDBD 10:34 → EDBEDREQ 11:31
DX: A41.9 Sepsis, unspecified organism (principal); J18.9 Pneumonia, unspecified organism; N39.0 Urinary tract infection, site not specified; Z66 Do not resuscitate; Z51.5 Encounter for palliative care; R06.03 Acute respiratory distress; E87.5 Hyperkalemia; C18.9 Malignant neoplasm of colon, unspecified; E11.9 Type 2 diabetes mellitus without complications; Z87.891 Personal history of nicotine dependence; F31.9 Bipolar disorder, unspecified; C85.10 Unspecified B-cell lymphoma, unspecified site; K21.9 Gastro-esophageal reflux disease without esophagitis; C78.7 Secondary malignant neoplasm of liver and intrahepatic bile duct; C79.89 Secondary malignant neoplasm of other specified sites; D63.8 Anemia in other chronic diseases classified elsewhere
CPT/HCPCS: 36415; 36600; 71045; 80053; 81003; 82248; 82728; 82803; 82962; 83605; 83880; 84484; 85007; 85025; 85610; 85730; 86710; 87040; 87081; 93005; 93306; 93970; 94640; 94664; 96365; 96366; 96375; 99291; J7620